=== PATIENT | female | born 1965 | race African-American/Black ===

== ENCOUNTER 2016-09-20 19:20 | Emergency (ER) | payer OTHER ==
--- NOTE | 2016-09-20 19:36 | PDOC ---
Rapid Medical Evaluation Chief Complaint: Pain Time Seen by Provider: 09/20/16 19:34 Medical Evaluation: Allergies Allergy/AdvReac Type Severity Reaction Status Date / Time No Known Allergies Allergy Verified 09/20/16 19:32 09/20/16 19:34 51 year old female with history of hysterectomy complaining of left shoulder pain and limited ROM; felt sudden pop while playing volleyball. -Shoulder xray -To FT for further evaluation
[2016-09-20 19:37] VITALS: PULSE 88; TEMP 99.2; BMI 34.2
[2016-09-20 19:40] VITALS: BP 163/105
[2016-09-20] MEDS ORDERED: IBUPROFEN 600 MG TABLET (FP) PO ONE (19:40)
--- NOTE | 2016-09-20 21:55 | PDOC ---
History of Present Illness - General Chief Complaint: Pain Stated Complaint: SHOULDER PAIN Time Seen by Provider: 09/20/16 19:34 History Source: Patient - History of Present Illness Occurred: reports: just prior to arrival Upper Extremity Pain Location: left: shoulder Method of Injury: reports: other Past History - Past Medical History Allergies/Adverse Reactions: Allergies Allergy/AdvReac Type Severity Reaction Status Date / Time Penicillins Allergy Severe Hives Verified 09/20/16 19:50 Other medical history: denies - Immunization History Immunization Up to Date: Yes - Psycho/Social/Smoking Cessation Hx Suicidal Ideation: No Smoking History: Never smoked Information on smoking cessation initiated: No Hx Alcohol Use: No Drug/Substance Use Hx: No Substance Use Type: None, Alcohol Review of Systems - Review of Systems Musculoskeletal: Yes: Joint Pain, Joint Swelling *Physical Exam - Vital Signs Last Vital Signs Temp Pulse Resp BP Pulse Ox 99.2 F 88 18 163/105 97 09/20/16 19:32 09/20/16 19:32 09/20/16 19:32 09/20/16 19:32 09/20/16 19:32 - Physical Exam General Appearance: Yes: Appropriately Dressed. No: Apparent Distress HEENT: positive: Normal Voice Neck: positive: Supple Respiratory/Chest: negative: Respiratory Distress Extremity: positive: Normal Inspection, Tender. negative: Swelling Integumentary: positive: Dry, Warm Neurologic: positive: Fully Oriented, Alert, Normal Mood/Affect ED Treatment Course - Medications Given in the ED: ED Medications Discontinued Medications Generic Name Dose Route Start Last Admin Trade Name Freq PRN Reason Stop Dose Admin Ibuprofen 600 mg 09/20/16 19:40 09/20/16 19:43 Motrin - PO 09/20/16 19:41 600 mg ONCE ONE Administration Medical Decision Making - Medical Decision Making 09/20/16 21:55 51-year-old female, no significant history, presents with left shoulder pain after playing volleyball today. Patient states she heard a pop in shoulder. Has been having pain since. Denies any fall. Patient well-appearing, with diffuse tenderness to left shoulder joint but no swelling or deformity with limited range of motion secondary to pain. X-ray ordered from triage and read as negative by radiology. Most likely sprain. DC with sling, pain control and also referral as needed 09/20/16 21:57 *DC/Admit/Observation/Transfer Diagnosis at time of Disposition: Shoulder sprain Qualifiers: Encounter type: initial encounter Shoulder sprain type: unspecified sprain Laterality: right Qualified Code(s): S43.401A - Unspecified sprain of right shoulder joint, initial encounter - Discharge Dispostion Disposition: HOME Condition at time of disposition: Good - Referrals Referrals: STAFF,NOT ON [Primary Care Provider] - Mauricio Leslie MD [Staff Physician] - - Patient Instructions Printed Discharge Instructions: DI for Shoulder Sprain Additional Instructions: X-ray was negative for fracture. Take Motrin as needed for pain Please follow-up with orthopedic if pain persists after 2 weeks
== END 2016-09-20 22:10 | disposition home or self-care (01) ==
LOC: JERFT 19:20
DX: S43.402A Unspecified sprain of left shoulder joint, initial encounter (principal); X58.XXXA Exposure to other specified factors, initial encounter; Y93.68 Activity, volleyball (beach) (court); Y92.9 Unspecified place or not applicable
CPT/HCPCS: 73030-TC-LT; 99281-25